=== PATIENT | female | born 1995 | race African-American/Black ===

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

== ENCOUNTER 2017-10-24 21:42 | Emergency (ER) | payer MEDICAID ==
[~2017-10-24] VITALS: Ht 160 cm; Wt 50.8 kg
[~2017-10-24 21:42] MED LIST changes: +CEPHALEXIN500 MG ORAL; +TYLENOL EXTRA500 MG ORAL
[2017-10-24 21:54] VITALS: BP 128/74
[2017-10-24 22:38] LABS: APPEARANCE,URINE CLEAR; BILIRUBIN, URINE NEGATIVE (NEGATIVE); COLOR,URINE PALE YELLOW; GLUCOSE, URINE (UA) NEGATIVE (NEGATIVE); KETONES,URINE NEGATIVE (NEGATIVE); LEUKOCYTE ESTERASE ,URINE 1+ (NEGATIVE); NITRITE,URINE NEGATIVE (NEGATIVE); PH,URINE 5 (4.5-8.0); PROTEIN,URINE NEGATIVE (NEGATIVE); UROBILINOGEN,URINE NORMAL MG/DL (0.0-1.0)
--- NOTE | 2017-10-24 22:42 | Emergency Room Report ---
History of Present Illness General Chief Complaint: Female Urogenital Problems Source: Patient Present Illness HPI This is a 22-year-old female with no past medical history. She presents with chief complaint of kidney pain. She said she's been having back pain for months on and off. Worse with certain position. Worse with prolonged standing. No fever chills but no incontinence of bowel or urine. She points to her lower back as her area of kidney pain. She also has dysuria and a whitish discharge that is malodorous. Has a history of Chlamydia in the past. Is sexually active with one partner. Allergies: Coded Allergies: DIPHENHYDRAMINE (Verified Allergy, Mild, 09/23/15) Swelling in the eyes Patient History Past Medical History: see triage record, old chart reviewed Past Surgical History: none Pertinent Family History: none Social History: Denies: smoking Last Menstrual Period: october 23 Now: No Immunizations: other Reviewed Nursing Documentation: PMH: Agreed; PSxH: Agreed Nursing Documentation-PMH Past Medical History: No Stated History Review of Systems Eye: Denies: eye pain, blurred vision ENT: Denies: ear pain, nose congestion, throat swelling Respiratory: Denies: cough, shortness of breath Cardiovascular: Denies: chest pain, palpitations Gastrointestinal: Denies: abdominal pain, diarrhea, nausea, vomiting Musculoskeletal: Reports: back pain; Denies: joint pain Skin: Denies: rash Neurological: Denies: headache, numbness Endocrine: Denies: increased thirst, increased urine Hematologic/Lymphatic: Denies: easy bruising All Other Systems: negative except mentioned in HPI Physical Exam Vital Signs Date Time Temp Pulse Resp B/P (MAP) Pulse Ox O2 Delivery O2 Flow Rate FiO2 10/24/17 21:44 98.1 74 18 128/74 96 Room Air 98.1 vitals normal Sp02 EP Interpretation: reviewed, normal General Appearance: well appearing, no apparent distress, alert Head: normocephalic, atraumatic Eyes: bilateral eye PERRL, bilateral eye EOMI ENT: hearing grossly normal, normal pharynx Neck: full range of motion, supple, no meningismus Respiratory: chest non-tender, lungs clear, normal breath sounds Cardiovascular #1: regular rate, rhythm, no murmur Gastrointestinal: normal bowel sounds, non tender, no mass, no organomegaly, no bruit, non-distended Genitourinary: other - Pelvic exam done with Ayana, LUIS, as linux support engineer. Sternal exam normal. Internal exam show whitish discharge. No cervical motion tenderness. No adnexal tenderness. Musculoskeletal: back normal - patient have mild tender lumbar paraspinous muscle bilaterally. No percussive tenderness. No midline tenderness, gait/ station normal, normal range of motion Neurologic: alert, oriented x3 Psychiatric: mood/affect normal Skin: warm/dry Medical Decision Making Diagnostic Impression: Primary Impression: Bacterial vaginosis Additional Impression: Low back pain Qualified Codes: M54.5 - Low back pain ER Course Patient presents with 2 issues. First she has lower back pain which is most likely musculoskeletal in nature. No evidence of cauda equina syndrome, spinal epidural abscess or neoplastic process. No evidence of pyelonephritis or urinary tract infection. No ectopic. Second issue is vaginal discharge and she has bacterial vaginosis. We'll discharge home. Last Vital Signs Date Time Temp Pulse Resp B/P (MAP) Pulse Ox O2 Delivery O2 Flow Rate FiO2 10/24/17 21:54 98.1 18 128/74 96 Room Air 98.1 10/24/17 21:44 74 Status: improved Disposition: HOME, SELF-CARE Condition: Stable Scripts Ibuprofen* (MOTRIN*) 600 Mg Tablet 600 MG ORAL THREE TIMES A DAY, #30 TAB 0 Refills Prov: WILLI MURRAY M.D. 10/24/17 Metronidazole* (FLAGYL*) 500 Mg Tablet 500 MG ORAL BID, #14 TAB Prov: WILLI MURRAY M.D. 10/24/17 Additional Instructions: Follow-up with your doctor in 7 days. Return if symptom worsen. WILLI MURRAY M.D. October 24, 2017 22:42
[2017-10-24] MEDS ORDERED: Norco 5mg/325mg tab ORAL ONE (22:45)
[2017-10-24] MEDS ORDERED: METRONIDAZOLE500 MG ORAL (23:13)
[2017-10-24] MEDS ORDERED: IBUPROFEN600 MG ORAL (23:13)
[2017-10-24 23:25] VITALS: BP 122/78
== END 2017-10-24 23:35 | disposition home or self-care (01) ==
LOC: EMR 23:17
DX: N76.0 Acute vaginitis (principal); M54.5 Low back pain; Z88.8 Allergy status to other drugs, medicaments and biological substances
CPT/HCPCS: 81003; 81025; 87210; 99284

== ENCOUNTER 2018-03-28 19:39 | Emergency (ER) | payer MEDICAID ==
[~2018-03-28] VITALS: Ht 157.5 cm; Wt 50.8 kg
[~2018-03-28 19:39] MED LIST changes: +METRONIDAZOLE500 MG ORAL
[2018-03-28] MEDS ORDERED: NKM (19:46)
[2018-03-28 19:50] VITALS: BP 133/95
--- NOTE | 2018-03-28 20:05 | Emergency Room Report ---
History of Present Illness General Chief Complaint: Back Pain-No Injury Source: Patient Present Illness HPI Patient is a 22-year-old female presents today with complaints of dysuria that began a week ago. Patient states she went to her primary physician who prescribed her Diflucan for a yeast infection which she took with minimal relief. She is also complaining of associated whitish discharge. She notes mild pelvic pain rated at 3 out of 10 severity worse with urinating. She notes frequency and urgency as well. Denies hematuria, fever, chills complaint pain or associated symptoms. She has no significant medical problems and denies tobacco, alcohol or drug use. Allergies: Coded Allergies: DIPHENHYDRAMINE (Verified Allergy, Mild, 09/23/15) Swelling in the eyes Patient History Last Menstrual Period: 03/2018 Reviewed Nursing Documentation: PMH: Agreed; PSxH: Agreed Nursing Documentation-PMH Past Medical History: No Stated History Physical Exam Vital Signs Date Time Temp Pulse Resp B/P (MAP) Pulse Ox O2 Delivery O2 Flow Rate FiO2 03/28/18 19:43 98.4 83 16 133/95 100 Room Air Sp02 EP Interpretation: reviewed, normal General Appearance: no apparent distress, alert, GCS 15, non-toxic Head: normocephalic, atraumatic Eyes: bilateral eye normal inspection, bilateral eye PERRL ENT: hearing grossly normal, normal pharynx, no angioedema, normal voice Neck: full range of motion, supple/symm/no masses Respiratory: chest non-tender, lungs clear, normal breath sounds, speaking full sentences Cardiovascular #1: regular rate, rhythm, no edema Cardiovascular #2: 2+ carotid (R), 2+ carotid (L), 2+ radial (R), 2+ radial (L) , 2+ dorsalis pedis (R), 2+ dorsalis pedis (L) Gastrointestinal: normal bowel sounds, soft, non-distended, no guarding, no rebound, other - mild superpubic tenderness palpation Rectal: deferred Genitourinary: no CVA tenderness, other - patient refusing exam Musculoskeletal: back normal, gait/station normal, normal range of motion, non- tender, calf tenderness Neurologic: alert, oriented x3, responsive, motor strength/tone normal, sensory intact, speech normal Psychiatric: judgement/insight normal, memory normal, mood/affect normal, no suicidal/homicidal ideation Reflexes: 3+ bicep (R), 3+ bicep (L), 3+ tricep (R), 3+ tricep (L), 3+ knee (R) , 3+ knee (L) Skin: normal color, no rash, warm/dry, well hydrated Lymphatic: no adenopathy Medical Decision Making PA Attestation Supervising physician is Dr. Monroe Reaction to Intervention: Improved Diagnostic Impression: Primary Impression: Acute cystitis Additional Impression: Vaginal discharge ER Course Urine is consistent with UTI. Patient states she's had unprotected sex with 2 hardeners in the past month. She states she's been having discharge as well as urinary frequency and urgency. Patient is treated empirically with azithromycin and Rocephin to cover for gonorrhea and chlamydia as well as prescription for Keflex for a possible UTI. No evidence of pyelonephritis. Vitals are within normal limits, patient afebrile. No evidence of serious bacterial infection. Patient is instructed to avoid sexual intercourse and she states she has a in the [facility] with her primary care physician 04/02/18 she will have repeat STD testing. Laboratory Tests Test 03/28/18 19:48 Urine Color Pale yellow Urine Appearance Clear Urine pH 7 (4.5-8.0) Urine Specific Garrett 1.010 (1.005-1.035) Urine Protein Negative (NEGATIVE) Urine Glucose (UA) Negative (NEGATIVE) Urine Ketones Negative (NEGATIVE) Urine Blood Negative (NEGATIVE) Urine Nitrite Negative (NEGATIVE) Urine Bilirubin Negative (NEGATIVE) Urine Urobilinogen Normal MG/DL (0.0-1.0) Urine Leukocyte Esterase 1+ (NEGATIVE) H Urine RBC Pending Urine WBC Pending Urine Squamous Epithelial Cells Pending Urine Bacteria Pending Last Vital Signs Date Time Temp Pulse Resp B/P (MAP) Pulse Ox O2 Delivery O2 Flow Rate FiO2 03/28/18 19:50 98.4 65 16 133/95 100 Room Air Last Vital Signs Date Time Temp Pulse Resp B/P (MAP) Pulse Ox O2 Delivery O2 Flow Rate FiO2 03/28/18 19:50 98.4 65 16 133/95 100 Room Air Status: improved Disposition: HOME, SELF-CARE Condition: Stable Scripts Cephalexin* (KEFLEX*) 500 Mg Capsule 500 MG ORAL EVERY 12 HOURS, #14 CAP 0 Refills Prov: Melissa Maher P.A. 03/28/18 Referrals: [facility],REFERRING (PCP) Patient Instructions: Urinary Tract Infection Melissa Maher Mar 28, 2018 20:05
[2018-03-28 20:15] LABS: APPEARANCE,URINE CLEAR; BILIRUBIN, URINE NEGATIVE (NEGATIVE); COLOR,URINE PALE YELLOW; GLUCOSE, URINE (UA) NEGATIVE (NEGATIVE); KETONES,URINE NEGATIVE (NEGATIVE); LEUKOCYTE ESTERASE ,URINE 1+ (NEGATIVE); NITRITE,URINE NEGATIVE (NEGATIVE); PH,URINE 7 (4.5-8.0); PROTEIN,URINE NEGATIVE (NEGATIVE); UROBILINOGEN,URINE NORMAL MG/DL (0.0-1.0)
[2018-03-28] MEDS ORDERED: Lidocaine 1% MPF 10mg/ml 5ml INJ ONE (20:30)
[2018-03-28] MEDS ORDERED: Azithromycin 250mg tab ORAL ONE (20:30)
[2018-03-28] MEDS ORDERED: CEPHALEXIN500 MG ORAL (20:31)
[2018-03-28 20:47] VITALS: BP 133/95
== END 2018-03-28 20:49 | disposition home or self-care (01) ==
LOC: EMR 19:59
DX: N30.00 Acute cystitis without hematuria (principal); N89.8 Other specified noninflammatory disorders of vagina
CPT/HCPCS: 81003; 96372; 99283; J0696; Q0144

== ENCOUNTER 2018-07-04 14:24 | Emergency (ER) | payer MEDICAID ==
[~2018-07-04] VITALS: Ht 157.5 cm; Wt 54.9 kg
--- NOTE | 2018-07-04 14:43 | NUR ---
ED Nurse Note: patient walked into ED from home c/o constipation
[2018-07-04] MEDS ORDERED: LACTULOSE20 GM/301 ORAL (15:12)
[2018-07-04] MEDS ORDERED: TYLENOL EXTRA500 MG ORAL (15:12)
--- NOTE | 2018-07-04 15:13 | Emergency Room Report ---
History of Present Illness General Chief Complaint: Pain Source: Patient Present Illness HPI 23-year-old female patient presents the ER complaining of constipation for the past 2 days. Reports has not been able to have a bowel movement in the last 2 days. Reports has been able to pass flatus. Denies diarrhea. Denies fever, chest pain, shortness of breath. Denies other aggravating or relieving factors. Reports has not been drinking a lot of fluids at home. Denies dysuria , hematuria. Allergies: Coded Allergies: DIPHENHYDRAMINE (Verified Allergy, Mild, 09/23/15) Swelling in the eyes Patient History Past Medical History: see triage record Reviewed Nursing Documentation: PMH: Agreed; PSxH: Agreed Nursing Documentation-PMH Past Medical History: No Stated History Review of Systems All Other Systems: negative except mentioned in HPI Physical Exam Vital Signs Date Time Temp Pulse Resp B/P (MAP) Pulse Ox O2 Delivery O2 Flow Rate FiO2 07/04/18 14:37 97.5 82 18 128/81 99 Room Air Sp02 EP Interpretation: reviewed, normal General Appearance: well appearing, no apparent distress, alert, GCS 15, non- toxic Head: normocephalic, atraumatic Eyes: bilateral eye normal inspection, bilateral eye PERRL ENT: hearing grossly normal, normal pharynx, no angioedema, normal voice, uvula midline, moist mucus membranes Neck: full range of motion Respiratory: lungs clear, normal breath sounds, no rhonchi, no respiratory distress, no accessory muscle use, no wheezing, speaking full sentences Cardiovascular #1: regular rate, rhythm, no edema Gastrointestinal: normal bowel sounds, non tender, soft, no mass, non-distended , no guarding, no rebound Musculoskeletal: back normal, digits/nails normal, gait/station normal, normal range of motion, non-tender Neurologic: alert, oriented x3, responsive, motor strength/tone normal, sensory intact Psychiatric: mood/affect normal Skin: no rash Medical Decision Making PA Attestation Dr. Lama is my supervising Physician whom patient management has been discussed with. Diagnostic Impression: Primary Impression: Constipation ER Course Pt presents to ED c/o generalized abdominal pain and constipation. DDX considered but are not limited to cystitis, pyelonephritis, constipation, SBO. Low suspicion for appendicitis, no TTP at McBurney's point, negative Rovsing sign. VITAL SIGNS are WNL, patient is afebrile. ER COURSE Normal bowel sounds, no abdominal tenderness palpation, low suspicion for SBO. Does not require imaging at this time. Take Tylenol for pain symptoms. Patient is resting comfortably in chair, nontoxic appearing, in no acute distress. Patient states they feel better and is ready to go home. Drink plenty of fluids. Advised on high-fiber diet. ER precautions given. DISCHARGE: -Rx provided for Lactulose Rx provided for Tyelnol Will provide with patient care instructions and any necessary prescriptions. Patient understands and agrees to treatment plan. Patient encouraged to drink plenty of fluids. Patient to take medication as instructed. Care plan and follow-up instructions provided. Patient questions asked and answered. Patient instructed to follow-up with clinical safety specialist in 3 - 5 days. ER precautions given. Patient instructed to return to ER immediately for any new or worsening of symptoms. Including but not limited to fever, worsening pain , intractable vomiting. - Please note that this Emergency Department Report was dictated using TM3 Systemsheating equipment installer technology software, occasionally this can lead to erroneous entry secondary to interpretation by the dictation equipment.ient is afebrile. Last Vital Signs Date Time Temp Pulse Resp B/P (MAP) Pulse Ox O2 Delivery O2 Flow Rate FiO2 07/04/18 14:37 97.5 82 18 128/81 99 Room Air Disposition: HOME, SELF-CARE Condition: Stable Scripts Acetaminophen* (TYLENOL EXTRA STRENGTH*) 500 Mg Tablet 500 MG ORAL Q8H PRN for Prn Headache/Temp > 101, #30 TAB 0 Refills Prov: Nasim Wan 07/04/18 Lactulose (LACTULOSE*) 20 Gm/30 Ml Solution 30 ML ORAL DAILY, #120 ML 0 Refills Prov: Nasim Wan 07/04/18 Referrals: NON PHYSICIAN (PCP) Patient Instructions: Constipation, Adult, [id number] Additional Instructions: Followup with primary care provider in 3 -5 days. Discuss referral to GI specialist. Drink plenty of fluids. Take medications as directed. Patient questions asked and answered. ER precautions given, patient instructed to return to ER immediately for any new or worsening of symptoms. Nasim Wan Jul 04, 2018 15:13
--- NOTE | 2018-07-04 15:19 | NUR ---
ED Nurse Note: Pt is cleared for discharge per ER PA Discharge instrcution/paper/ prescription given and explained to the patient, patient verbalized understanding. pt is alert and oriented x4, ambulated out of ED steady gait with all belongigns. pt is stable for DC. VSS. pt ID band removed.
[2018-07-04 17:16] VITALS: BP 128/81
[2018-07-04 17:17] VITALS: BP 128/81
== END 2018-07-04 15:19 | disposition home or self-care (01) ==
LOC: EMR 14:54
DX: K59.00 Constipation, unspecified (principal); Z88.8 Allergy status to other drugs, medicaments and biological substances
CPT/HCPCS: 99282

== ENCOUNTER 2018-07-28 12:26 | Emergency (ER) | payer MEDICAID ==
[~2018-07-28] VITALS: Ht 157.5 cm; Wt 65.8 kg
[~2018-07-28 12:26] MED LIST changes: +LACTULOSE20 GM/301 ORAL
[2018-07-28 12:58] VITALS: BP 120/75
[2018-07-28] MEDS ORDERED: Lidocaine 2% Visc 15ml soln ORAL ONE (13:00)
[2018-07-28] MEDS ORDERED: Benzonatate 100mg Perles ORAL ONE (13:00)
--- NOTE | 2018-07-28 13:07 | Emergency Room Report ---
History of Present Illness General Chief Complaint: Flu Like Symptoms Source: Patient Present Illness HPI 23-year-old female patient presents the ER complaining of cough, congestion, flulike symptoms for the past several days. Reports dry cough that has evolved into a cough with sputum. States that she also noted mild amount of blood noted in a few of her coughs. Denies calf pain. Denies neck pain. Denies recent travel. Denies travel outside the country. Denies smoking. Denies drug use. Denies history of blood disorders. Reports sore throat and fever during this time, currently afebrile in ER. Reports sick contacts at home. Denies getting flu shot this year. Denies chest pain or shortness of breath. Denies history of heart disease. Denies vomiting or diarrhea. Denies abdominal pain. Denies other aggravating or relieving factors. States his been taking Robitussin, NyQuil, and acetaminophen at home without relief of symptoms. Allergies: Coded Allergies: DIPHENHYDRAMINE (Verified Allergy, Mild, 09/23/15) Swelling in the eyes Patient History Past Medical History: see triage record Last Menstrual Period: 06/21/2018 Now: No Reviewed Nursing Documentation: PMH: Agreed; PSxH: Agreed Nursing Documentation-PMH Past Medical History: No Stated History Review of Systems All Other Systems: negative except mentioned in HPI Physical Exam Vital Signs Date Time Temp Pulse Resp B/P (MAP) Pulse Ox O2 Delivery O2 Flow Rate FiO2 07/28/18 12:33 98.4 87 20 123/79 99 Room Air 07/28/18 12:58 98 Sp02 EP Interpretation: reviewed, normal General Appearance: well appearing, no apparent distress, alert, GCS 15, non- toxic Head: normocephalic, atraumatic Eyes: bilateral eye normal inspection, bilateral eye PERRL ENT: hearing grossly normal, normal pharynx, no angioedema, normal voice, TMs + canals normal, uvula midline, moist mucus membranes, tonsillar swelling, pharyngeal erythema, tonsillar exudate, other - Uvula midline Neck: full range of motion, no meningismus, no bony tend Respiratory: lungs clear, normal breath sounds, no rhonchi, no respiratory distress, no accessory muscle use, no wheezing, speaking full sentences, other - No stridor Cardiovascular #1: regular rate, rhythm, no edema Gastrointestinal: non tender, soft, no mass, non-distended, no guarding, no rebound Genitourinary: no CVA tenderness Musculoskeletal: back normal, digits/nails normal, gait/station normal, normal range of motion, non-tender Neurologic: alert, oriented x3, responsive, motor strength/tone normal, sensory intact Psychiatric: mood/affect normal Skin: no rash Lymphatic: adenopathy - Cervical Medical Decision Making PA Attestation Dr. Lama is my supervising Physician whom patient management has been discussed with. Diagnostic Impression: Primary Impression: Tonsillitis Additional Impression: Upper respiratory infection ER Course Pt presents to ED c/o cough, sore throat, flu-like symptoms. DDX considered but are not limited to influenza, viral URI, pneumonia, strep throat, rhinitis, sinusitis, otitis media, otitis externa, TB, strep throat, pharyngitis, tonsillitis. no uvula deviation, no neck stiffness, no stridor, no tripoding, low suspicion for peritonsillar abscess. VITAL SIGNS are WNL, patient is afebrile. ER COURSE: Provide with viscous lidocaine for sore throat. Lungs clear to auscultation, no wheezes, rhonci or rales. patient afebrile. Low suspicion for pneumonia, chest x-ray negative per the preliminary reading. Symptomatic treatment. tonsillar exudates, pharyngeal erythema, lymphadenopathy, likely tonsillitis. Will provide antibiotic treatment. Continue taking Tylenol for relief of symptoms. saltwater gargles. Drink plenty of fluids. Symptomatic treatment. ER precautions given. DISCHARGE: Rx provided for amoxicillin -Rx given for Sudafed -Rx provided for Tessalon pearles At this time pt is stable for d/c to home. Patient resting comfortably, in no acute distress, nontoxic appearing, talking without difficulty Patient to take medications as instructed. Will provide with patient care instructions and any necessary prescriptions. Care plan and follow-up instructions provided. Patient instructed to follow-up with primary care provider in 3 - 5 days. Patient questions asked and answered. ER precautions given. Patient instructed to return to ER immediately for any new or worsening of symptoms including but not limited to fever, SOB, difficulty swallowing. - Please note that this Emergency Department Report was dictated using [employer] plant manager technology software, occasionally this can lead to erroneous entry secondary to interpretation by the dictation equipment. Last Vital Signs Date Time Temp Pulse Resp B/P (MAP) Pulse Ox O2 Delivery O2 Flow Rate FiO2 07/28/18 12:58 98.4 77 20 120/75 99 Room Air 07/28/18 12:58 98 Disposition: HOME, SELF-CARE Condition: Stable Scripts D-Methorphan/PE/Acetaminophen (Sudafed PE Pressure+Pain+Cough) 1 Each Tablet 1 EACH PO BID, #24 TAB Prov: Nasim Wan 07/28/18 Benzonatate* (TESSALON PERLE*) 100 Mg Capsule 100 MG ORAL THREE TIMES A DAY, #21 PERLE Prov: Nasim Wan 07/28/18 Amoxicillin* (AMOXIL*) 500 Mg Capsule 500 MG ORAL EVERY 8 HOURS for 7 Days, #21 CAP Prov: Nasim Wan 07/28/18 Patient Instructions: Tonsillitis, [id number], Upper Respiratory Infection, Adult, [id number] Additional Instructions: Followup with primary care provider in 3 -5 days. Salt water gargles Take Tylenol for pain and fever symptoms Drink plenty of water. Take medications as directed. Patient questions asked and answered. ER precautions given, patient instructed to return to ER immediately for any new or worsening of symptoms including but not limited to intractable vomiting, difficulty breathing, inability to eat. Nasim Wan Jul 28, 2018 13:07
[2018-07-28] MEDS ORDERED: TESSALON PERLE100 MG ORAL (13:50)
[2018-07-28] MEDS ORDERED: AMOXICILLIN500 MG ORAL (13:50)
[2018-07-28] MEDS ORDERED: SUDAFED PE PRE1 EACH PO (13:50)
[2018-07-28 13:57] VITALS: BP 122/77
== END 2018-07-28 13:58 | disposition home or self-care (01) ==
LOC: EMR 13:55
DX: J03.90 Acute tonsillitis, unspecified (principal); J06.9 Acute upper respiratory infection, unspecified; Z88.8 Allergy status to other drugs, medicaments and biological substances
CPT/HCPCS: 71045; 99282

== ENCOUNTER 2018-10-08 18:38 | Emergency (ER) | payer MEDICAID ==
[~2018-10-08] VITALS: Ht 157.5 cm; Wt 65.8 kg
[~2018-10-08 18:38] MED LIST changes: +AMOXICILLIN500 MG ORAL; +SUDAFED PE PRE1 EACH PO; +TESSALON PERLE100 MG ORAL
--- NOTE | 2018-10-08 19:00 | NUR ---
ED Nurse Note: Received report. Pt from home, AAPOx4, ambulatory, c/o sternal tight, sharp c/p 02/12 since August. VSS. Will assess and carry out ER MD's orders.
--- NOTE | 2018-10-08 19:30 | Emergency Room Report ---
History of Present Illness General Chief Complaint: Chest Pain Source: Patient Present Illness HPI Patient presents with complaints of chest pain midsternal Reports that is been ongoing since the beginning of August Denies any change of position denies any change with exertion Denies any vomiting or diarrhea denies any abdominal pain Patient is otherwise at good health denies any recent travel denies any calf pain or swelling Patient describes as a sharp pain fairly constant Allergies: Coded Allergies: DIPHENHYDRAMINE (Verified Allergy, Mild, 09/23/15) Swelling in the eyes Patient History Past Medical History: see triage record Pertinent Family History: none Last Menstrual Period: sep Now: No Reviewed Nursing Documentation: PMH: Agreed; PSxH: Agreed Nursing Documentation-PMH Hx Asthma: Yes Review of Systems All Other Systems: negative except mentioned in HPI Physical Exam Vital Signs Date Time Temp Pulse Resp B/P (MAP) Pulse Ox O2 Delivery O2 Flow Rate FiO2 10/08/18 18:52 98.2 79 16 98 Room Air Sp02 EP Interpretation: reviewed, normal General Appearance: well appearing, no apparent distress Head: normocephalic, atraumatic Eyes: bilateral eye PERRL, bilateral eye EOMI ENT: hearing grossly normal, normal pharynx, TMs + canals normal, uvula midline Neck: full range of motion, supple, no meningismus, no bony tend Respiratory: lungs clear, normal breath sounds, no rhonchi, no respiratory distress, no retraction, no accessory muscle use Cardiovascular #1: normal peripheral pulses, regular rate, rhythm, no edema, no gallop, no JVD, no murmur Gastrointestinal: normal bowel sounds, non tender, soft, no mass, no organomegaly, non-distended, no guarding, no hernia, no pulsatile mass, no rebound Genitourinary: no CVA tenderness Musculoskeletal: normal inspection Neurologic: oriented x3, responsive, senior product analyst III-XII nml as tested, motor strength/ tone normal, sensory intact Psychiatric: mood/affect normal Skin: normal color, no rash, warm/dry, palpation normal Lymphatic: normal inspection, no adenopathy Medical Decision Making Diagnostic Impression: Primary Impression: Chest pain ER Course Patient is a fairly complex patient with multiple differential to consideration including but not limited to cardiac cardiopulmonary and vascular emergencies More specifically pulmonary ambles him and other acute pathology also entertained Patient has low score regarding pulmonary embolism or cardiac disease Patient is not tachycardiac does not have any active pleurisy Has not traveled and does not have any blood clots previously, is not on control pills EKG and x-ray are appropriate and the patient stable for close outpatient follow -up EKG Diagnostic Results Rate: normal Rhythm: NSR ST Segments: no acute changes Rhythm Strip Diag. Results EP Interpretation: yes Rate: 60 Rhythm: NSR, no PVC's, no ectopy Chest X-Ray Diagnostic Results Chest X-Ray Diagnostic Results : Chest X-Ray Ordered: Yes # of Views/Limited/Complete: 1 View Indication: Chest Pain EP Interpretation: Yes Interpretation: no consolidation, no effusion, no pneumothorax Impression: No acute disease Electronically Signed by: Edgardo Forte DO Last Vital Signs Date Time Temp Pulse Resp B/P (MAP) Pulse Ox O2 Delivery O2 Flow Rate FiO2 10/08/18 18:52 98.2 79 16 98 Room Air Status: improved Disposition: HOME, SELF-CARE Condition: Improved Scripts Famotidine (PEPCID AC) 20 Mg Tablet 20 MG PO DAILY for 7 Days, TAB Prov: Edgardo Forte DO 10/08/18 Additional Instructions: Patient is provided with the discharge instructions notified to follow up with primary doctor in the next 2-3 days otherwise return to the er with any worsening symptoms. Please note that this report is being documented using [employer] technology. This can lead to erroneous entry secondary to incorrect interpretation by the dictating instrument. Edgardo Forte DO October 08, 2018 19:30
[2018-10-08 19:33] VITALS: BP 116/62
[2018-10-08] MEDS ORDERED: PEPCID AC20 M2 PO (19:55)
--- NOTE | 2018-10-08 20:04 | NUR ---
ED Nurse Note: pt cleared to be d/c per ERMD, pt discharge and aftercare instruction provided w/ prescription, pt education done via discussion and handout, pt advised to follow up with pcp or return to ed if changes in condition, pt verbalized understanding and agrees with plan, vss, ambulatory w/ steady gait, left w/ all belongings. ID band removed.
[2018-10-08 20:06] VITALS: BP 114/58
--- NOTE | 2018-10-09 11:16 | Diagnostic Imaging Report ---
Indication: Chest pain Comparison: 07/28/2018 A single view chest radiograph was obtained. Findings: Cardiomediastinal appearance is within normal limits for age. The lungs are clear. Pulmonary vascularity is appropriate. The diaphragmatic contour is smooth and costophrenic angles are sharp. No pleural effusions are identified. The bones are unremarkable. Impression: No acute findings
== END 2018-10-08 20:06 | disposition home or self-care (01) ==
LOC: EMR 19:27
DX: R07.9 Chest pain, unspecified (principal); Z88.8 Allergy status to other drugs, medicaments and biological substances
CPT/HCPCS: 71045; 99283

== ENCOUNTER 2018-11-23 20:40 | Emergency (ER) | payer MEDICAID ==
[~2018-11-23] VITALS: Ht 157.5 cm; Wt 61.2 kg
[~2018-11-23 20:40] MED LIST changes: +PEPCID AC20 M2 PO
[2018-11-23 21:00] VITALS: BP 120/73
--- NOTE | 2018-11-23 21:00 | NUR ---
ER Nurse Note: Pt came from home c/o pain around neck, LT shoulder, and back. Pt stated pain started 11/22 at midnight. /10 pain, aching pain, skin intact. Pt a&ox4, able to move extremities. Will continue to monitor.
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
[2018-11-23] MEDS ORDERED: IBUPROFEN600 MG ORAL (22:42)
[2018-11-23 22:55] VITALS: BP 126/74
--- NOTE | 2018-11-23 22:55 | NUR ---
ER Nurse Note: Pt seen, treated, medically cleared for discharge by ERMD. Discharge instuctions and prescriptions given with repeat verbalization by pt. All orders completed per ERMD orders. Pt a&ox4, VSS, no signs of distress. ID band removed. Pt ambulaitory with steady gait, left with all belongings, left with own transportation.
== END 2018-11-23 22:55 | disposition home or self-care (01) ==
LOC: EMR 21:35
DX: R07.9 Chest pain, unspecified (principal); T14.8XXA Other injury of unspecified body region, initial encounter; Y09 Assault by unspecified means; Y92.9 Unspecified place or not applicable; M54.2 Cervicalgia; M25.512 Pain in left shoulder; Z88.8 Allergy status to other drugs, medicaments and biological substances
CPT/HCPCS: 99282

== ENCOUNTER 2018-12-16 17:35 | Emergency (ER) | payer MEDICAID ==
[~2018-12-16] VITALS: Ht 157.5 cm; Wt 60.8 kg
[2018-12-16 17:55] VITALS: BP 115/75
--- NOTE | 2018-12-16 17:56 | NUR ---
ED Nurse Note:pt. came with nausea vomiting abdominal pain ,urine sent to labs
--- NOTE | 2018-12-16 18:07 | Emergency Room Report ---
History of Present Illness General Chief Complaint: Abdominal Pain Source: Patient, Family Member Present Illness HPI The patient presents with a 3 to 4 days of nausea. She also is complaining about suprapubic pain. Is 5/10 at this time. Its episodic. Her last menstrual period was on the of last month. She is not sure if she is at this time. She has a yellowish discharge. Is no vaginal bleeding. She is felt slightly feverish but not documented temperature. She denies dysuria or diarrhea. She has not been vomiting but the nausea is fairly significant. No chills, chest pain, palpitations, shortness of breath, depression, visual changes, headache. History of asthma but denies wheezing. 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 Last Menstrual Period: november Now: No Reviewed Nursing Documentation: PMH: Agreed; PSxH: Agreed Nursing Documentation-PMH Hx Asthma: Yes Review of Systems All Other Systems: negative except mentioned in HPI Physical Exam Vital Signs Date Time Temp Pulse Resp B/P (MAP) Pulse Ox O2 Delivery O2 Flow Rate FiO2 12/16/18 17:45 98.2 70 16 115/75 (88) 99 Room Air Sp02 EP Interpretation: reviewed, normal General Appearance: well appearing, no apparent distress, GCS 15 Head: normocephalic Eyes: bilateral eye normal inspection, bilateral eye PERRL, bilateral eye EOMI ENT: moist mucus membranes Neck: supple Respiratory: lungs clear, normal breath sounds Cardiovascular #1: regular rate, rhythm Cardiovascular #2: 2+ radial (R) Gastrointestinal: normal bowel sounds, soft, no mass, no guarding, no rebound, tenderness Genitourinary: no CVA tenderness, deferred - For ultrasound Musculoskeletal: back normal, digits/nails normal, gait/station normal Neurologic: alert, oriented x3, grossly normal Psychiatric: mood/affect normal Skin: no rash Medical Decision Making Diagnostic Impression: Primary Impression: Pelvic pain Additional Impressions: Ovarian cyst Qualified Codes: N83.201 - Unspecified ovarian cyst, right side Vaginal discharge ER Course Patient presents with 3 to 4 days of nausea and suprapubic pain. Differential includes gastroenteritis, ovarian cyst, ectopic , early , threatened , UTI amongst others. The patient will be evaluated with labs including test. In addition pelvic ultrasound will be performed. The patient will be treated with Reglan and a small dose of morphine. CBC normal. CMP normal. negative. Urinalysis no pyuria. Ultrasound reveals ovarian cyst. Improved with treatment. Discussed results with patient and the need to follow-up with her BALANCE WEIGHER. Patient stable for outpatient observation and treatment. Laboratory Tests Test 12/16/18 18:10 12/16/18 18:20 Urine Color Pale yellow Urine Appearance Clear Urine pH 7 (4.5-8.0) Urine Specific [place] 1.005 (1.005-1.035) Urine Protein Negative (NEGATIVE) Urine Glucose (UA) Negative (NEGATIVE) Urine Ketones Negative (NEGATIVE) Urine Blood Negative (NEGATIVE) Urine Nitrite Negative (NEGATIVE) Urine Bilirubin Negative (NEGATIVE) Urine Urobilinogen Normal MG/DL (0.0-1.0) Urine Leukocyte Esterase 2+ (NEGATIVE) H Urine RBC 0-2 /HPF (0 - 2) Urine WBC 2-4 /HPF (0 - 2) Urine Squamous Epithelial Cells Moderate /LPF (NONE/OCC) H Urine Bacteria Moderate /HPF (NONE) H Urine HCG, Qualitative Negative (NEGATIVE) Chlamydia trachomatis RNA Pending Neisseria gonorrhoeae RNA Pending White Blood Count 10.8 K/UL (4.8-10.8) Red Blood Count 4.17 M/UL (4.20-5.40) L Hemoglobin 10.7 G/DL (12.0-16.0) L Hematocrit 34.5 % (37.0-47.0) L Mean Corpuscular Volume 83 FL (80-99) Mean Corpuscular Hemoglobin 25.6 PG (27.0-31.0) L Mean Corpuscular Hemoglobin Concent 30.9 G/DL (32.0-36.0) L Red Cell Distribution Width 15.1 % (11.6-14.8) H Platelet Count 216 K/UL (150-450) Mean Platelet Volume 7.1 FL (6.5-10.1) Neutrophils (%) (Auto) 64.2 % (45.0-75.0) Lymphocytes (%) (Auto) 28.4 % (20.0-45.0) Monocytes (%) (Auto) 5.9 % (1.0-10.0) Eosinophils (%) (Auto) 0.3 % (0.0-3.0) Basophils (%) (Auto) 1.1 % (0.0-2.0) Sodium Level 138 MMOL/L (136-145) Potassium Level 3.6 MMOL/L (3.5-5.1) Chloride Level 105 MMOL/L (98-107) Carbon Dioxide Level 24 MMOL/L (21-32) Anion Gap 9 mmol/L (5-15) Blood Urea Nitrogen 12 mg/dL (7-18) Creatinine 0.8 MG/DL (0.55-1.30) Estimate Glomerular Filtration Rate > 60 mL/min (>60) Glucose Level 87 MG/DL (74-106) Calcium Level 9.4 MG/DL (8.5-10.1) Total Bilirubin 0.7 MG/DL (0.2-1.0) Aspartate Amino Transferase (AST) 17 U/L (15-37) Alanine Aminotransferase (ALT) 13 U/L (12-78) Alkaline Phosphatase 79 U/L (46-116) Total Protein 8.4 G/DL (6.4-8.2) H Albumin 3.8 G/DL (3.4-5.0) Globulin 4.6 g/dL Albumin/Globulin Ratio 0.8 (1.0-2.7) L Lipase 270 U/L (73-393) CT/MRI/US Diagnostic Results CT/MRI/US Diagnostic Results : Imaging Test Ordered: us pelvic Impression ovarian cyst R Last Vital Signs Date Time Temp Pulse Resp B/P (MAP) Pulse Ox O2 Delivery O2 Flow Rate FiO2 12/16/18 20:40 98.2 70 16 115/75 99 Room Air Status: improved Disposition: HOME, SELF-CARE Condition: Improved Scripts Ibuprofen* (MOTRIN*) 600 Mg Tablet 600 MG ORAL Q6H PRN for For Pain, #20 TAB 0 Refills Prov: Jose Ludwig MD 12/16/18 Ondansetron Odt* (ZOFRAN ODT*) 4 Mg Tab.rapdis 4 MG BC EVERY 8 HOURS, #10 TAB 0 Refills Prov: Jose Ludwig MD 12/16/18 Metronidazole* (FLAGYL*) 500 Mg Tablet 500 MG ORAL BID, #14 TAB Prov: Jose Ludwig MD 12/16/18 Jose Ludwig MD Dec 16, 2018 18:07
[2018-12-16] MEDS ORDERED: Morphine Sulfate 2mg/ml Inj(IV/IM USE ONLY) IVP ONE (18:15)
[2018-12-16] MEDS ORDERED: Metoclopramide 10mg/2ml Inj IVP ONE (18:15)
--- NOTE | 2018-12-16 18:17 | NUR ---
ED Nurse Note:blood sent to labs and given IV meds and fluids
[2018-12-16 18:30] LABS: BASOPHILS % (AUTO) 1.1 % (0.0-2.0); EOSINOPHILS % (AUTO) 0.3 % (0.0-3.0); HEMATOCRIT 34.5 % (37.0-47.0); HEMOGLOBIN 10.7 G/DL (12.0-16.0); LYMPHOCYTES % (AUTO) 28.4 % (20.0-45.0); MEAN CORPUSCULAR VOLUME 83 FL (80-99); MONOCYTES % (AUTO) 5.9 % (1.0-10.0); NEUTROPHILS % (AUTO) 64.2 % (45.0-75.0); PLATELET COUNT 216 K/UL (150-450); RED BLOOD COUNT 4.17 M/UL (4.20-5.40); RED CELL DISTRIBUTION WIDTH 15.1 % (11.6-14.8); WHITE BLOOD COUNT 10.8 K/UL (4.8-10.8)
[2018-12-16 18:31] LABS: APPEARANCE,URINE CLEAR; BILIRUBIN, URINE NEGATIVE (NEGATIVE); COLOR,URINE PALE YELLOW; GLUCOSE, URINE (UA) NEGATIVE (NEGATIVE); KETONES,URINE NEGATIVE (NEGATIVE); LEUKOCYTE ESTERASE ,URINE 2+ (NEGATIVE); NITRITE,URINE NEGATIVE (NEGATIVE); PH,URINE 7 (4.5-8.0); PROTEIN,URINE NEGATIVE (NEGATIVE); UROBILINOGEN,URINE NORMAL MG/DL (0.0-1.0)
[2018-12-16] MEDS ORDERED: LORazepam Inj 2mg/ml 1ml ONE (18:37)
[2018-12-16] MEDS ORDERED: LORazepam Inj 2mg/ml 1ml IV ONE (18:45)
[2018-12-16 18:51] LABS: ANION GAP 9 mmol/L (5-15); BLOOD UREA NITROGEN 12 mg/dL (7-18); CALCIUM 9.4 MG/DL (8.5-10.1); CARBON DIOXIDE 24 MMOL/L (21-32); CHLORIDE 105 MMOL/L (98-107); CREATININE 0.8 MG/DL (0.55-1.30); POTASSIUM 3.6 MMOL/L (3.5-5.1); SODIUM 138 MMOL/L (136-145)
[2018-12-16 18:55] LABS: ALANINE AMINOTRANSFERASE 13 U/L (12-78); ALBUMIN 3.8 G/DL (3.4-5.0); ALBUMIN/GLOBULIN RATIO 0.8 (1.0-2.7); ALKALINE PHOSPHATASE 79 U/L (46-116); ASPARTATE AMINO TRANSFERASE 17 U/L (15-37); BILIRUBIN,TOTAL 0.7 MG/DL (0.2-1.0)
[2018-12-16] MEDS ORDERED: Ketorolac 30mg Inj IV ONE (19:45)
[2018-12-16] MEDS ORDERED: ONDANSETRON ODT4 MG BC (20:33)
[2018-12-16] MEDS ORDERED: METRONIDAZOLE500 MG ORAL (20:33)
[2018-12-16] MEDS ORDERED: IBUPROFEN600 MG ORAL (20:33)
[2018-12-16 20:40] VITALS: BP 115/75
--- NOTE | 2018-12-16 20:40 | NUR ---
ER DISCHARGE NOTE: Patient is cleared to be discharged per ERMD, pt is aox4, on room air, with stable vital signs. pt was given dc and prescription instructions, pt was able to verbalize understanding, pt id band and iv site removed without complications. pt is able to ambulate with steady gait. pt took all belongings.
--- NOTE | 2018-12-17 17:31 | Diagnostic Imaging Report ---
Indication: Pelvic pain, negative test Technique: Transabdominal and transvaginal images of the pelvis Doppler interrogation of the bilateral ovaries Comparison: none Findings: Uterus measures 7 cm length by 4.1 cm AP. Endometrium measures 8 mm thick. No myometrial abnormality. The right ovary measures 4.2 cm length. Left ovary measures 3.4 cm length. No adnexal mass. Normal ovarian blood flow. There is trace free fluid in the right adnexal region. Impression: Essentially unremarkable exam Trace free fluid, presumed physiologic This agrees with the preliminary interpretation provided overnight by [facility] teleradiology service.
== END 2018-12-16 20:40 | disposition home or self-care (01) ==
LOC: EMR 18:25
DX: R10.2 Pelvic and perineal pain (principal); N83.201 Unspecified ovarian cyst, right side; N89.8 Other specified noninflammatory disorders of vagina; R11.0 Nausea; Z88.8 Allergy status to other drugs, medicaments and biological substances; F17.200 Nicotine dependence, unspecified, uncomplicated
CPT/HCPCS: 36415; 76856; 80053; 81003; 81025; 83690; 85025; 86850; 86900; 86901; 87086; 87491; 87590; 96361; 96374; 96375; 99284; J1885; J2765

== ENCOUNTER 2020-03-03 20:36 | Emergency (ER) | payer MEDICAID ==
[~2020-03-03] VITALS: Ht 157.5 cm; Wt 69.9 kg
[~2020-03-03 20:36] MED LIST changes: +ONDANSETRON ODT4 MG BC
[2020-03-03 21:00] VITALS: BP 116/66
[2020-03-03] MEDS ORDERED: Acetaminophen 500mg (ES) tab ORAL ONE (21:00)
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
[2020-03-03 21:18] LABS: BASOPHILS % (AUTO) 0.7 % (0.0-2.0); EOSINOPHILS % (AUTO) 0.4 % (0.0-3.0); HEMATOCRIT 37.8 % (37.0-47.0); HEMOGLOBIN 12.6 G/DL (12.0-16.0); LYMPHOCYTES % (AUTO) 14.3 % (20.0-45.0); MEAN CORPUSCULAR VOLUME 87 FL (80-99); MONOCYTES % (AUTO) 5.1 % (1.0-10.0); NEUTROPHILS % (AUTO) 79.5 % (45.0-75.0); PLATELET COUNT 217 K/UL (150-450); RED BLOOD COUNT 4.36 M/UL (4.20-5.40); RED CELL DISTRIBUTION WIDTH 13.9 % (11.6-14.8); WHITE BLOOD COUNT 11.7 K/UL (4.8-10.8)
[2020-03-03 21:20] LABS: APPEARANCE,URINE CLEAR; BILIRUBIN, URINE NEGATIVE (NEGATIVE); COLOR,URINE PALE YELLOW; GLUCOSE, URINE (UA) NEGATIVE (NEGATIVE); KETONES,URINE NEGATIVE (NEGATIVE); LEUKOCYTE ESTERASE ,URINE 2+ (NEGATIVE); NITRITE,URINE NEGATIVE (NEGATIVE); PH,URINE 6 (4.5-8.0); PROTEIN,URINE NEGATIVE (NEGATIVE); UROBILINOGEN,URINE NORMAL MG/DL (0.0-1.0)
[2020-03-03 21:27] LABS: ANION GAP 8 mmol/L (5-15); BLOOD UREA NITROGEN 8 mg/dL (7-18); CARBON DIOXIDE 25 MMOL/L (21-32); CHLORIDE 103 MMOL/L (98-107); CREATININE 0.7 MG/DL (0.55-1.30); POTASSIUM 3.5 MMOL/L (3.5-5.1); SODIUM 136 MMOL/L (136-145)
[2020-03-03 21:31] LABS: ALANINE AMINOTRANSFERASE 27 U/L (12-78); ALBUMIN 3.4 G/DL (3.4-5.0); ALBUMIN/GLOBULIN RATIO 0.7 (1.0-2.7); ALKALINE PHOSPHATASE 83 U/L (46-116); ASPARTATE AMINO TRANSFERASE 20 U/L (15-37); BILIRUBIN,TOTAL 0.5 MG/DL (0.2-1.0)
--- NOTE | 2020-03-03 21:36 | NUR ---
ED Nurse Note: US is at pt bedside
[2020-03-03 22:30] VITALS: BP 120/74
[2020-03-03] MEDS ORDERED: Bacitracin Oint UD TOPIC ONE (22:30)
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
== END 2020-03-03 22:30 | disposition home or self-care (01) ==
LOC: EMR 20:57
DX: O26.91 Pregnancy related conditions, unspecified, first trimester (principal); R10.2 Pelvic and perineal pain; T24.001A Burn of unspecified degree of unspecified site of right lower limb, except ankle and foot, initial encounter; V43.52XA Car driver injured in collision with other type car in traffic accident, initial encounter; W22.11XA Striking against or struck by driver side automobile airbag, initial encounter; Y92.410 Unspecified street and highway as the place of occurrence of the external cause; Z88.8 Allergy status to other drugs, medicaments and biological substances
CPT/HCPCS: 36415; 76801; 80053; 81003; 84702; 85025; 86850; 86900; 86901; 96360; J7030; Z7502; 99284